=== PATIENT | male | born 1965 | race Caucasian/White ===

== ENCOUNTER 2020-05-23 06:33 | Outpatient (CLI) | payer MEDICARE, MEDICAID, SELFPAY ==
[2020-05-23 08:03] LABS: Cholesterol 193 mg/dL (0-200); HDL Direct 55 mg/dL; Triglycerides 87 mg/dL (<150)
[2020-05-23 08:13] LABS: LDL Cholesterol Direct 103 mg/dL
== END 2020-05-23 06:34 | disposition home or self-care (01) ==
PROVIDERS: PCP Family Medicine; Visit Provider Internal Medicine Cardiovascular Disease
DX: E78.00 Pure hypercholesterolemia, unspecified (principal)
CPT/HCPCS: 36415; 80061

== ENCOUNTER → 2020-11-27 00:41 | Day surgery (SDC) | payer MEDICARE, MEDICAID, SELFPAY | END | disposition home or self-care (01) | LOC: ANHCOVIDDT 11-28 10:49 → ANHSURGERY 11-30 06:23 | PROVIDERS: PCP Family Medicine; Visit Provider Internal Medicine Gastroenterology | DX: Z01.812 Encounter for preprocedural laboratory examination (principal); Z20.822 Contact with and (suspected) exposure to COVID-19 | CPT/HCPCS: 99199; C9803; U0003; U0005 ==

== ENCOUNTER 2020-11-29 15:30 | Outpatient (CLI) | payer MEDICARE, MEDICAID, SELFPAY ==
[2020-11-29 09:53] LABS: EDCOVIDSCREEN Negative (Negative)
== END 2020-11-29 15:31 | disposition home or self-care (01) ==
LOC: ANHLAB 12-05 16:32
PROVIDERS: PCP Family Medicine; Visit Provider Internal Medicine Gastroenterology
DX: Z01.812 Encounter for preprocedural laboratory examination (principal); Z20.822 Contact with and (suspected) exposure to COVID-19
CPT/HCPCS: 36415; 87426; C9803

== ENCOUNTER 2020-11-30 01:15 | Day surgery (SDC) | payer MEDICARE, MEDICAID, SELFPAY ==
[2020-11-10 14:47] VITALS: BMI 18.8
[2020-11-15 13:56] VITALS: BMI 18.8
[2020-11-30 06:46] VITALS: BMI 17.3
[2020-11-30 07:00] VITALS: BP 121/84; PULSE 68; RESP 16; TEMP 36; O2SAT 99
[2020-11-30] MEDS: SODIUM CHLORIDE 0.9% IV 500 ML 30 ML IV CONT (07:15)
--- NOTE | 2020-11-30 07:21 | P.HP_ITS ---
History of Present Illness History of Present Illness Consent: Risks, benefits, and alternatives have been discussed and questions answered. Patient agrees to proceed with procedure. Chief complaint: neoplasm screening Narrative: Jesús Grady is a 55 year old male referred for colon cancer screening. He has no symptoms. He is hopeful getting on the kidney transplant list Review of Systems Review of Systems: All systems reviewed & are unremarkable except as noted in HPI and below [facility] Social History Social History Smoking packs per day: 0.5 Smoking cigarettes per day: 10.0 Smoking status: Current every day smoker Tobacco type: cigarettes Alcohol intake: never Substance use: never Substance use type: does not use Living arrangements: with family Gender identity (if verbalized by the patient): Male Sexual Orientation (if Verbalized by the Patient): Straight or Heterosexual Spiritual care concerns: No Meds Home Medications and Allergies Home Medications Medication Instructions Recorded Confirmed Type amlodipine 10 mg PO DAILY 11/10/20 11/30/20 History carvedilol 25 mg PO BID 11/10/20 11/30/20 History clonidine HCl 0.1 mg PO DAILY 11/10/20 11/30/20 History furosemide 80 mg PO DAILY 11/10/20 11/30/20 History hydralazine 50 mg PO TID 11/10/20 11/30/20 History Allergies Allergy/AdvReac Type Severity Reaction Status Date / Time No Known Allergies Allergy Unknown Verified 11/30/20 06:44 Exam Resp: Auscultation: clear to auscultation bilaterally Cardio: Rate: regular rate Rhythm: regular rhythm GI: GI Palp: Yes Soft to palpation and No Tenderness to palpation present (GI) Assessment and Plan Assessment and plan (1) Colon cancer screening: Code(s): Z12.11 - Encounter for screening for malignant neoplasm of colon Status: Acute Assessment and Plan: Colonoscopy with possible biopsy or polypectomy or cautery or injection of substances.
--- NOTE | 2020-11-30 07:29 | WPDANESEPPF ---
Anes - Initial Pre Proc Eval Procedure: Operation Date: 11/30/20 08:00 Proposed Procedures p Screening Colonoscopy - Timoteo Cardenas MD Date/Time: 11/30/20 07:29 Surgeon: Timoteo Cardenas MD Pre Op Diagnosis: neoplasm screening Patient Data Age: 55 Gender: M Height: 1.93 m Weight: 64.5 kg Allergies Allergy/AdvReac Type Severity Reaction Status Date / Time No Known Allergies Allergy Unknown Verified 11/30/20 06:44 Home Medications Medication Instructions Recorded Confirmed Type amlodipine 10 mg PO DAILY 11/10/20 11/30/20 History carvedilol 25 mg PO BID 11/10/20 11/30/20 History clonidine HCl 0.1 mg PO DAILY 11/10/20 11/30/20 History furosemide 80 mg PO DAILY 11/10/20 11/30/20 History hydralazine 50 mg PO TID 11/10/20 11/30/20 History Laboratory Tests 11/29/20 09:22 SARS-CoV-2 IgG/IgM Ag?Rapid Negative (Negative) Patient hx anesthesia problems: none Family hx anesthesia problems: none [facility] Past Medical History Medical History (Updated 11/30/20 @ 07:32 by Myron Sutton MD) ESRD (end stage renal disease) Fistula HTN (hypertension) Social History Social History Smoking packs per day: 0.5 Smoking cigarettes per day: 10.0 Smoking status: Current every day smoker Tobacco type: cigarettes Alcohol intake: never Substance use: never Substance use type: does not use Living arrangements: with family Gender identity (if verbalized by the patient): Male Sexual Orientation (if Verbalized by the Patient): Straight or Heterosexual Spiritual care concerns: No Anes - Eval Final PreProcedure Day of Procedure 11/30/20 07:29 Patient weight: normal Heart: regular rate and rhythm Lungs: clear to auscultation Airway: Mallampati scale class II Neurological: alert and oriented Last oral intake: >/= 8 hours ASA classification: IV Emergent: no Anesthetic plan: proceed Anesthesia type and monitoring: general GIVS and standard monitoring Informed Consent: The patient's anesthetic plan and its attendant risks and benefits were discussed with the patient/family/POA. Questions were solicited and answers provided to the satisfaction of the patient/family/POA.
[2020-11-30 08:28] VITALS: BP 98/60; PULSE 68; RESP 16; O2SAT 99
[2020-11-30] MEDS: SIMETHICONE ORAL SUSPENSION 20 MG/0.3 ML 30 ML BOTTLE 0.6 ML IRRIGATION (08:37)
[2020-11-30 08:38] VITALS: BP 106/70; PULSE 64; RESP 16; O2SAT 99
[2020-11-30 08:48] VITALS: BP 118/64; PULSE 68; RESP 17; O2SAT 99
== END 2020-11-30 08:55 | disposition home or self-care (01) ==
LOC: ANHENDO 05:37 → ANHSURGERY 06:14 → ANHENDO 06:21
PROVIDERS: PCP Family Medicine; Visit Provider Internal Medicine Gastroenterology
PROC: 0DJD8ZZ Inspection of Lower Intestinal Tract, Via Natural or Artificial Opening Endoscopic (ICD-10-PCS; CPT 45378; principal; 2020-11-30 08:00)
DX: Z12.11 Encounter for screening for malignant neoplasm of colon (principal); D12.5 Benign neoplasm of sigmoid colon; D12.8 Benign neoplasm of rectum; K63.5 Polyp of colon; I12.0 Hypertensive chronic kidney disease with stage 5 chronic kidney disease or end stage renal disease; N18.6 End stage renal disease; Z99.2 Dependence on renal dialysis; F17.210 Nicotine dependence, cigarettes, uncomplicated
CPT/HCPCS: 45380; 45385; 36415; 87426; 88305; C9803; J2704; J7040; J7120